=== PATIENT | male | born 1980 | race Caucasian/White ===

== ENCOUNTER 2021-02-03 22:27 | Emergency (ER) | payer BC ==
[~2021-02-03] VITALS: Ht 172.7 cm; Wt 65.8 kg
[2021-02-03 22:40] VITALS: BP 136/105
== END 2021-02-04 00:45 | disposition home or self-care (01) ==
LOC: ER 22:31
DX: S00.33XA Contusion of nose, initial encounter (principal); Y04.2XXA Assault by strike against or bumped into by another person, initial encounter; Y93.89 Activity, other specified; Y92.89 Other specified places as the place of occurrence of the external cause; Y99.8 Other external cause status
CPT/HCPCS: 70160-TC